=== PATIENT | male | born 1945 | race Caucasian/White ===

== ENCOUNTER → 2016-05-01 12:43 | Outpatient (CLI) | payer MEDICARE, OTHER ==
[2014-01-13 07:27] VITALS: BMI 31.7
[~2016-05-01 12:43] MED LIST: ASPIRIN EC81 M1 PO; FLOMAX0.4 MG PO; HYDROCHLOROTH12.5 M1 PO; LIPITOR10 MG PO; LISINOPRIL10 MG GT; LOPRESSOR25 MG PO; MULTI-DAY VITAM1 TAB PO; NORVASC5 MG PO; PLAVIX75 MG PO; PRINIVIL20 MG PO; ZYLOPRIM300 MG PO
== END | disposition home or self-care (01) ==
LOC: D.US 12:43
DX: I65.23 Occlusion and stenosis of bilateral carotid arteries (principal)

== ENCOUNTER → 2017-06-11 12:41 | Outpatient (CLI) | payer MEDICARE, OTHER ==
[2014-01-13 07:27] VITALS: BMI 31.7
== END | disposition home or self-care (01) ==
LOC: D.US 12:41
DX: I65.23 Occlusion and stenosis of bilateral carotid arteries (principal)